=== PATIENT | female | born 1985 | race Caucasian/White ===

== ENCOUNTER → 2021-01-02 | Day surgery (SDC) | payer OTHER ==
[~2021-01-02] VITALS: Ht 172.7 cm; Wt 80.3 kg
[~2021-01-02] MED LIST: ACETAMINOPHEN 650 MG SUPP As Ordered ONE; ACETAMINOPHEN 650 MG SUPP PR ONE; BUPIVACAINE HCL 0.25% 10ML VIAL As Ordered ONE; GLYCOPYRROLATE INJ 0.2 MG/ML 2 ML VIAL As Ordered ONE; HYDROMORPHONE HCL 0.5 MG/ 0.5 ML SYRINGE (J1170 PER 1) IV PRN; KETOROLAC 30 MG/ML 1ML VIAL IV PRN; KETOROLAC 60MG 2ML VIAL As Ordered ONE; LIDOCAINE 1% MDV 20ML VIAL SQ PRN; LIDOCAINE 2% 100MG/5ML SDV (FOR ANES.) As Ordered ONE; LR 1,000 ML IV ONE; LR 1,000 ML IV SCH; METOCLOPRAMIDE INJ 10MG/2ML VIAL (J2765 PER 1) As Ordered ONE; METOCLOPRAMIDE INJ 10MG/2ML VIAL (J2765 PER 1) IV PRN; MIDAZOLAM INJ 2MG/2ML VIAL (J2250 PER 1MG) As Ordered ONE; NEXP1IMP SC; ONDANSETRON 4MG/2ML VIAL As Ordered ONE; ONDANSETRON 4MG/2ML VIAL IV PRN; ROCURONIUM BROMIDE 50 MG/5 ML VIAL As Ordered ONE; SCOPOLAMINE 1MG TRANSDERMAL PATCH TOP ONE; SUGAMMADEX SODIUM 500 MG/5 ML VIAL (BRIDION) As Ordered ONE; dexameTHASONE 4 MG/ML 1ML VIAL (J1100 PER 1MG) As Ordered ONE; fentaNYL 100 MCG/2 ML INJECTION (J3010) As Ordered ONE; fentaNYL 100 MCG/2 ML INJECTION (J3010) IV PRN; propofoL 200 MG/20 ML VIAL As Ordered ONE
[2021-01-02 11:30] LABS: HEMATOCRIT 42.4 % (36.0-47.0); HEMOGLOBIN 14.1 g/dl (12.0-15.5); MEAN CORPUSCULAR HEMOGLOBIN 32.2 pg (27.0-33.0); MEAN CORPUSCULAR HGB CONC 33.3 g/dl (32.0-36.5); MEAN CORPUSCULAR VOLUME 96.8 fl (80.0-96.0); PLATELET COUNT, AUTOMATED 179 10^3/uL (150-450); RED BLOOD COUNT 4.38 10^6/uL (4.00-5.40); WHITE BLOOD COUNT 5.8 10^3/uL (4.0-10.0)
[2021-01-02 12:00] LABS: BLOOD UREA NITROGEN 8 MG/DL (7-18); CALCIUM LEVEL 9.2 MG/DL (8.5-10.1); CARBON DIOXIDE LEVEL 22 MEQ/L (21-32); CHLORIDE LEVEL 113 MEQ/L (98-107); GLOMERULAR FILTRATION RATE > 60.0 (>60); GLUCOSE, FASTING 99 MG/DL (70-100); HCG, SERUM QUANTITATIVE < 1.0 MIU/ML; POTASSIUM SERUM 4.1 MEQ/L (3.5-5.1); SODIUM LEVEL 141 MEQ/L (136-145)
[2021-01-02 15:20] VITALS: BP 121/75
--- NOTE | 2021-01-09 07:31 | RO ---
OPERATIVE NOTE DATE OF OPERATION: 01/02/2021 PREOPERATIVE DIAGNOSIS: Satisfied parity. POSTOPERATIVE DIAGNOSIS: Satisfied parity. OPERATION PROPOSED: Operative laparoscopy; bilateral salpingectomy; removal of Nexplanon from left arm. PROCEDURE PERFORMED: Left salpingectomy and removal of Nexplanon from left arm. SURGEON: Jorge Vanegas MD TOLL RELIEF OPERATOR: Chris without who the procedure could not be completed, required for extraction, retraction and visualization. ANESTHESIA: General plus local anesthetic for intraperitoneal procedures and for removal of Nexplanon from left arm. ESTIMATED BLOOD LOSS: Less than 30 mL. DESCRIPTION OF PROCEDURE: After adequate anesthesia prepped and draped in lithotomy position. Lund catheter in the bladder draining clear urine. Uterine elevator placed in end of cervical canal, re-prepping and draping. Small subumbilical incision was made. Direct entry into the abdomen, no evidence of perforation, hemorrhage or bleeding. The abdomen was filled with 3.8 liters of CO2 deployed at 13 to pressure of 15. On visualization the right upper quadrant was normal. The left upper quadrant was normal. The cul-de-sac was clean. Interestingly, on the patient's right side, she did not have a tube or an ovary which had been previously removed in another operative procedure. On the left side the left tube was intact and the left ovary appeared to be quite enlarged despite the fact that it had not caused her any pain, seemed to be quite corrugated, there was no evidence of endometriosis or inflammatory effect but it was significantly enlarged and the patient will have an ultrasound at her checkup in order to reevaluate that ovary. A 5 mm port was placed on the left side, 3 mm port was placed on the right side. With the Harmonic scalpel the left tube was excised off and brought out through the 5 mm port. Again, reviewing the anatomy there was no evidence of right tube or ovary. The left tube was removed. The left ovary was enlarged. The rest of the anatomy was normal. The abdomen was deflated to 4 mm pressure. The two ports were removed and the mainstem port was removed. Subcuticular stitches were placed. Marcaine 0.25% to all three sites and skin tape was applied. We then went ahead and with the left arm extended and sterilized, time out was performed and then local anesthetic just below the entry point of the Nexplanon was placed with 2 mL of Marcaine 0.25%. Small vertical incision was made with 15-blade and the Nexplanon was removed. Band-Aid was placed over the incisional site, no evidence of active bleeding. Going down below the Lund catheter was removed. The uterine elevator and the single tooth tenaculum were removed and the patient was sent to recovery in good condition.
== END | disposition home or self-care (01) ==
LOC: M SDC 10:56
PROVIDERS: ATTEND Obstetrics & Gynecology
DX: Z30.2 Encounter for sterilization (principal); F17.210 Nicotine dependence, cigarettes, uncomplicated; Z88.5 Allergy status to narcotic agent; Z88.6 Allergy status to analgesic agent
CPT/HCPCS: 11982; 36415; 58661; 80048; 84702; 85027; 88300; 88302; J1100; J1885; J2250; J2405; J2765; J3010

== ENCOUNTER 2022-04-11 07:24 | Day surgery (SDC) | payer OTHER ==
[~2022-04-11] VITALS: Ht 172.7 cm; Wt 84.6 kg
[~2022-04-11 07:24] MED LIST changes: +ADDE10TA PO; +ADDE1TAB14 PO; -BUPIVACAINE HCL 0.25% 10ML VIAL As Ordered ONE; +BUPIVACAINE HCL 0.5% 30ML VIAL As Ordered ONE; +ETON68IM SC; -GLYCOPYRROLATE INJ 0.2 MG/ML 2 ML VIAL As Ordered ONE; -HYDROMORPHONE HCL 0.5 MG/ 0.5 ML SYRINGE (J1170 PER 1) IV PRN; +IBUP200C25 PO; -KETOROLAC 30 MG/ML 1ML VIAL IV PRN; -KETOROLAC 60MG 2ML VIAL As Ordered ONE; -LIDOCAINE 1% MDV 20ML VIAL SQ PRN; -LIDOCAINE 2% 100MG/5ML SDV (FOR ANES.) As Ordered ONE; -LR 1,000 ML IV ONE; -LR 1,000 ML IV SCH; +METHYLENE BLUE 0.5% (5MG/ML) 10 ML AMP (PROVAYBLUE) As Ordered ONE; -METOCLOPRAMIDE INJ 10MG/2ML VIAL (J2765 PER 1) As Ordered ONE; -METOCLOPRAMIDE INJ 10MG/2ML VIAL (J2765 PER 1) IV PRN; -MIDAZOLAM INJ 2MG/2ML VIAL (J2250 PER 1MG) As Ordered ONE; -NEXP1IMP SC; -ONDANSETRON 4MG/2ML VIAL As Ordered ONE; -ONDANSETRON 4MG/2ML VIAL IV PRN; -ROCURONIUM BROMIDE 50 MG/5 ML VIAL As Ordered ONE; -SCOPOLAMINE 1MG TRANSDERMAL PATCH TOP ONE; -SUGAMMADEX SODIUM 500 MG/5 ML VIAL (BRIDION) As Ordered ONE; +ceFAZolin SOD 2 GM in IV 1 EA IV ONE; -dexameTHASONE 4 MG/ML 1ML VIAL (J1100 PER 1MG) As Ordered ONE; -fentaNYL 100 MCG/2 ML INJECTION (J3010) As Ordered ONE; -fentaNYL 100 MCG/2 ML INJECTION (J3010) IV PRN; -propofoL 200 MG/20 ML VIAL As Ordered ONE
[2022-04-11] MEDS ORDERED: LR 1,000 ML IV SCH ×2 (08:15→11:00)
[2022-04-11 08:27] LABS: HEMATOCRIT 42.6 % (36.0-47.0); HEMOGLOBIN 14.3 g/dl (12.0-15.5); MEAN CORPUSCULAR HEMOGLOBIN 31.6 pg (27.0-33.0); MEAN CORPUSCULAR HGB CONC 33.6 g/dl (32.0-36.5); PLATELET COUNT, AUTOMATED 191 10^3/uL (150-450); RED BLOOD COUNT 4.53 10^6/uL (4.00-5.40); WHITE BLOOD COUNT 6.4 10^3/uL (4.0-10.0)
[2022-04-11 09:04] LABS: BLOOD UREA NITROGEN 12 MG/DL (7-18); CALCIUM LEVEL 9.2 MG/DL (8.5-10.1); CARBON DIOXIDE LEVEL 19 MEQ/L (21-32); CHLORIDE LEVEL 111 MEQ/L (98-107); GLOMERULAR FILTRATION RATE > 60.0 (>60); GLUCOSE, FASTING 100 MG/DL (70-100); HCG, SERUM QUANTITATIVE < 1.0 MIU/ML; POTASSIUM SERUM 4.2 MEQ/L (3.5-5.1); SODIUM LEVEL 138 MEQ/L (136-145)
[2022-04-11] MEDS ORDERED: fentaNYL 100 MCG/2 ML INJECTION As Ordered ONE (09:08)
[2022-04-11] MEDS ORDERED: HYDROmorphone HCL 2MG/ML 1ML VIAL As Ordered ONE (09:08)
[2022-04-11] MEDS ORDERED: MIDAZOLAM INJ 2MG/2ML VIAL (J2250 PER 1MG) As Ordered ONE (09:08)
[2022-04-11] MEDS ORDERED: propofoL 200 MG/20 ML VIAL As Ordered ONE (09:09)
[2022-04-11] MEDS ORDERED: ROCURONIUM BROMIDE 50 MG/5 ML VIAL As Ordered ONE (09:09)
[2022-04-11] MEDS ORDERED: LIDOCAINE 2% 100MG/5ML SDV (FOR ANES.) As Ordered ONE (09:09)
[2022-04-11] MEDS ORDERED: dexameTHASONE 4 MG/ML 1ML VIAL (J1100 PER 1MG) As Ordered ONE (09:10)
[2022-04-11] MEDS ORDERED: ONDANSETRON 4MG 2ML VIAL As Ordered ONE (09:10)
[2022-04-11] MEDS ORDERED: SUGAMMADEX SODIUM 500 MG/5 ML VIAL (BRIDION) As Ordered ONE (09:19)
[2022-04-11 10:02] LABS: HEMOGLOBIN A1c 5.5 %
[2022-04-11] MEDS ORDERED: traMADol 50 MG TAB PO ONE (11:00)
[2022-04-11] MEDS ORDERED: MORPHINE 2 MG/ML 1ML VIAL IV PRN (11:00)
[2022-04-11] MEDS ORDERED: fentaNYL 100 MCG/2 ML INJECTION IV PRN (11:00)
[2022-04-11] MEDS ORDERED: ONDANSETRON 4MG 2ML VIAL IV PRN (11:00)
[2022-04-11 11:46] VITALS: BP 115/77
== END 2022-04-11 12:35 | disposition home or self-care (01) ==
LOC: M SDC 07:24
PROVIDERS: ATTEND Obstetrics & Gynecology
DX: N93.9 Abnormal uterine and vaginal bleeding, unspecified (principal); K42.0 Umbilical hernia with obstruction, without gangrene; R10.2 Pelvic and perineal pain; K66.0 Peritoneal adhesions (postprocedural) (postinfection); F17.210 Nicotine dependence, cigarettes, uncomplicated
CPT/HCPCS: 36415; 58563; 80048; 83036; 84702; 85027; 88305; J0690; J1100; J1170; J2250; J2270; J2405; J3010

== ENCOUNTER → 2022-12-06 | Outpatient (REF) | payer OTHER ==
[~2022-12-06] MED LIST changes: -ACETAMINOPHEN 650 MG SUPP As Ordered ONE; -ACETAMINOPHEN 650 MG SUPP PR ONE; -BUPIVACAINE HCL 0.5% 30ML VIAL As Ordered ONE; -METHYLENE BLUE 0.5% (5MG/ML) 10 ML AMP (PROVAYBLUE) As Ordered ONE; -ceFAZolin SOD 2 GM in IV 1 EA IV ONE
[2022-12-06 17:50] LABS: BACTERIA, URINE AUTO NEGATIVE (NEGATIVE); MUCUS, URINE SMALL (NEGATIVE); RBC, URINE AUTO 0 /HPF (0-3); SQUAMOUS EPITHELIAL CELL UR AU 2 /HPF (0-6); WBC, URINE AUTO 1 /HPF (0-3)
== END ==
LOC: M SMT 16:58
PROVIDERS: ATTEND Specialist
DX: N32.81 Overactive bladder (principal)

== ENCOUNTER → 2023-01-01 | Day surgery (SDC) | payer OTHER ==
[~2023-01-01] VITALS: Ht 172.7 cm; Wt 89.9 kg
[~2023-01-01] MED LIST changes: +ACETAMINOPHEN 1000MG 100ML IV BAG As Ordered ONE; +BUPIVACAINE HCL 0.5% 30ML VIAL As Ordered ONE; +KETOROLAC 60MG 2ML VIAL As Ordered ONE; +LEXA5TAB13 PO; +LIDOCAINE 1% MDV 20ML VIAL As Ordered ONE; +LIDOCAINE 2% 100MG/5ML SDV (FOR ANES.) As Ordered ONE; +LR 1,000 ML IV SCH; +MIDAZOLAM INJ 2MG/2ML VIAL As Ordered ONE; +ceFAZolin 2 GM/D5W 50 ML IV BAG As Ordered ONE; +ceFAZolin SOD 2 GM in IV 1 EA IV ONE; +fentaNYL 100 MCG/2 ML INJECTION As Ordered ONE; +propofoL 500 MG/50 ML VIAL As Ordered ONE
[2023-01-01 09:00] VITALS: BP 116/79
== END | disposition home or self-care (01) ==
LOC: M SDC 06:03
PROVIDERS: ATTEND Podiatrist Foot & Ankle Surgery
DX: M72.2 Plantar fascial fibromatosis (principal); M79.2 Neuralgia and neuritis, unspecified; F90.9 Attention-deficit hyperactivity disorder, unspecified type; R35.0 Frequency of micturition; F41.9 Anxiety disorder, unspecified; M54.9 Dorsalgia, unspecified; F17.210 Nicotine dependence, cigarettes, uncomplicated; Z79.899 Other long term (current) drug therapy; Z88.5 Allergy status to narcotic agent
CPT/HCPCS: 29893; J0131; J1100; J1885; J2250; J3010; S0020